=== PATIENT | female | born 1965 | race Caucasian/White ===

== ENCOUNTER 2025-01-09 19:43 | Inpatient (IN) | payer OTHER ==
[~2025-01-09] VITALS: Ht 162.6 cm; Wt 88.0 kg
[2025-01-09 20:51] LABS: BASOPHILS % 0.3 % (0.0-2.0); EOSINOPHILS % 0.0 % (0.0-5.0); HEMATOCRIT. 42.7 % (36.0-48.0); HEMOGLOBIN. 13.9 g/dL (12.0-16.0); LYMPHOCYTES % 8.0 % (20.0-50.0); MEAN PLATELET VOLUME 10.1 fl (7.4-10.4); MONOCYTES % 2.5 % (2.0-8.0); NEUTROPHILS % 89.2 % (40.0-76.0); PLATELET 171 x1000/uL (130-400); RED BLOOD CELL COUNT 4.51 mill/uL (4.2-5.4); RED CELL DISTRIBUTION WIDTH 13.9 % (11.6-14.6)
[2025-01-09 20:56] LABS: CREATININE 2.2 mg/dL (0.6-1.0); UREA NITROGEN BLOOD 18.0 mg/dL (9-23)
[2025-01-10] MEDS ORDERED: FLUO60TA PO (02:50)
[2025-01-10] MEDS ORDERED: AMLO10TA80 PO (02:50)
[2025-01-10] MEDS ORDERED: GABA-1180 PO (02:50)
[2025-01-10] MEDS ORDERED: ONDA-241 PO (02:50)
[2025-01-10] MEDS ORDERED: MORP30TA54 PO (02:50)
[2025-01-10] MEDS ORDERED: QUET300T2 PO (02:50)
[2025-01-10] MEDS ORDERED: CLONIDINE 0.1MG TABLET PO PRN (03:00)
[2025-01-10] MEDS ORDERED: DEXTROSE 50% WATER 50ML SYRINGE IV PRN ×2 (03:00→03:15)
[2025-01-10] MEDS ORDERED: IPRATROPIUM/ALBUTEROL 0.5-3(2.5)MG/3ML NEB HHN PRN (03:00)
[2025-01-10] MEDS ORDERED: ONDANSETRON HCL 4MG/2ML INJ IV PRN (03:00)
[2025-01-10] MEDS ORDERED: DOCUSATE SODIUM 100MG CAPSULE PO PRN (03:00)
[2025-01-10] MEDS ORDERED: MAGNESIUM/ALUMINUM HYDROXIDE/SIMETHICONE 30ML UDC PO PRN (03:00)
[2025-01-10] MEDS ORDERED: GUAIFENESIN 200MG/10ML SUGAR FREE UDC PO PRN (03:00)
[2025-01-10 03:06] VITALS: BP 131/78; PULSE 80; RESP 20; TEMP 36.418
[2025-01-10] MEDS ORDERED: *PATIENT'S OWN MEDICATION STORAGE XX SCH ×2 (03:15→19:15)
[2025-01-10] MEDS ORDERED: FLUT1DIS3 IH (04:01)
[2025-01-10] MEDS ORDERED: OXCA300T31 PO (04:01)
[2025-01-10] MEDS ORDERED: FLUO40CA49 PO (04:01)
[2025-01-10] MEDS ORDERED: FAMO20TA8 PO (04:01)
[2025-01-10] MEDS ORDERED: QUET300T20 PO (04:01)
[2025-01-10] MEDS: SODIUM CHLORIDE 0.9% 1,000 ML IV SCH (04:48)
[2025-01-10] MEDS: NALOXONE HCL 0.4MG/ML 1ML VIAL IV NR (05:15)
[2025-01-10] MEDS: BLOOD SUGAR DIAGNOSTIC STRIP TEST SCH (06:54)
[2025-01-10 07:24] LABS: CLARITY URINE CLOUDY (CLEAR); COLOR URINE DARK YELLOW (YELLOW); GLUCOSE URINE NEGATIVE (NEGATIVE); KETONES URINE TRACE (NEGATIVE); LEUKOCYTE ESTERASE URINE TRACE (NEGATIVE); NITRITE URINE NEGATIVE (NEGATIVE); OCCULT BLOOD URINE TRACE (NEGATIVE); PH URINE 5.0 (4.5-8.0); PROTEIN URINE 1+ (NEGATIVE); SPECIFIC GRAVITY URINE 1.026 (1.005-1.030); UROBILINOGEN URINE 1.0 E.U./dL (0.2-1.0)
[2025-01-10] MEDS ORDERED: BLOOD SUGAR DIAGNOSTIC STRIP TEST SCH (07:40)
[2025-01-10 07:45] LABS: SODIUM URINE RANDOM 15.0 mEq/L
[2025-01-10 07:50] LABS: *AMPHETAMINES SCREEN URINE NEGATIVE (NEGATIVE); *BARBITURATES SCREEN URINE NEGATIVE (NEGATIVE); *BENZODIAZEPINES SCREEN URINE NEGATIVE (NEGATIVE); *COCAINE SCREEN URINE NEGATIVE (NEGATIVE); CANNABINOID URINE SCREEN PRESUMPTIVE POSITIVE (NEGATIVE); ECSTASY MDMA SCREEN URINE NEGATIVE (NEGATIVE); METHADONE URINE SCREEN NEGATIVE (NEGATIVE); OPIATES URINE SCREEN PRESUMPTIVE POSITIVE (NEGATIVE); PHENCYCLIDINE URINE SCREEN NEGATIVE (NEGATIVE)
[2025-01-10 07:56] LABS: CREATININE URINE RANDOM 179.8 mg/dL
[2025-01-10 08:00] VITALS: BP 115/62; PULSE 80; RESP 20; TEMP 36.1; O2SAT 92
[2025-01-10] MEDS: INSULIN LISPRO 100 UNITS/ML SUBCUT SCH (08:10)
[2025-01-10] MEDS: PANTOPRAZOLE SODIUM 40 MG/VIAL IV SCH (08:49)
[2025-01-10] MEDS: ENOXAPARIN 40MG/0.4ML SYR SUBCUT SCH (08:50)
[2025-01-10 09:07] LABS: HYALINE CASTS URINE 20-30 /lpf
[2025-01-10 09:08] LABS: FINE GRANULAR CASTS URINE 0-5 /lpf
[2025-01-10 09:09] LABS: OSMOLALITY URINE 404.0 mOsm/kg (500-850)
[2025-01-10 09:10] LABS: SQUAMOUS EPITHELIAL CELL URINE 2+ /lpf (RARE/1+)
[2025-01-10 09:11] LABS: RBC URINE 0-2 /hpf (0-2)
[2025-01-10 09:13] LABS: BACTERIA URINE 2+
[2025-01-10 09:55] LABS: BG BASE EXCESS -4.2 mmol/L (-2.0-3.0); BG CARBOXYHEMOGLOBIN 1.3 % (0.5-1.5); BG DEOXYHEMOGLOBIN 10.6 % (0.0-5.0); BG FLOW(L/min) 5.00 L/min; BG FRACTION INSPIRED OXYGEN 40; BG HCO3 ACT 19.8 mmol/L (21.0-28.0); BG METHEMOGLOBIN 0.3 % (0.5-1.5); BG OXYGEN SATURATION 89.2 % (94.0-98.0); BG OXYHEMOGLOBIN 87.8 % (94.0-98.0); BG PCO2 33.2 mmHg (32.0-45.0); BG PH 7.394 (7.350-7.450); BG PO2 60.8 mmHg (83.0-108.0); BG SAMPLE SITE RIGHT RADIAL; BG TOTAL HEMOGLOBIN 12.4 g/dL (12.0-16.0); BG VENT MODE NASAL CANNULA
[2025-01-10] MEDS ORDERED: SODIUM CHLORIDE 0.9% 1,000 ML IV NR (11:30)
[2025-01-10 12:00] VITALS: BP 93/66; PULSE 65; RESP 20; TEMP 36.4; O2SAT 91
[2025-01-10 16:00] VITALS: BP 112/64; PULSE 81; RESP 20; TEMP 36.6; O2SAT 93
[2025-01-10 16:32] LABS: CREATININE 2.3 mg/dL (0.6-1.0)
[2025-01-10 16:33] LABS: UREA NITROGEN BLOOD 30.0 mg/dL (9-23)
[2025-01-10] MEDS: FLUOXETINE HCL 20MG CAPSULE PO SCH (17:02)
[2025-01-10] MEDS ORDERED: SODIUM CHLORIDE 0.9% 1,000 ML IV ONE (18:15)
[2025-01-10 20:00] VITALS: BP 118/73; PULSE 84; RESP 20; TEMP 36.7; O2SAT 94
[2025-01-11] VITALS: BP 108/77; PULSE 77; RESP 20; TEMP 36.4; O2SAT 98
[2025-01-11 04:00] VITALS: BP 143/79; PULSE 80; RESP 20; TEMP 36.8; O2SAT 98
[2025-01-11] MEDS: ACETAMINOPHEN 650MG/20.3ML UDC GT PRN (06:04)
[2025-01-11 08:08] VITALS: BP 126/76; PULSE 74; RESP 18; TEMP 36.4; O2SAT 96
[2025-01-11 08:52] LABS: BASOPHILS % 0.2 % (0.0-2.0); EOSINOPHILS % 0.3 % (0.0-5.0); HEMATOCRIT. 37.6 % (36.0-48.0); HEMOGLOBIN. 12.8 g/dL (12.0-16.0); LYMPHOCYTES % 7.5 % (20.0-50.0); MEAN PLATELET VOLUME 10.6 fl (7.4-10.4); MONOCYTES % 2.3 % (2.0-8.0); NEUTROPHILS % 89.7 % (40.0-76.0); PLATELET 198 x1000/uL (130-400); RED BLOOD CELL COUNT 4.07 mill/uL (4.2-5.4); RED CELL DISTRIBUTION WIDTH 13.9 % (11.6-14.6)
[2025-01-11 09:15] LABS: ASPARTATE AMINOTRANSFERASE 57 IU/L (<34); BILIRUBIN DIRECT 0.2 mg/dL (<=3.0); BILIRUBIN TOTAL 0.6 mg/dL (0.1-1.0); CREATININE 0.9 mg/dL (0.6-1.0)
[2025-01-11 09:16] LABS: PROTEIN TOTAL 6.9 g/dL (6.0-8.3)
[2025-01-11 09:21] LABS: UREA NITROGEN BLOOD 12 mg/dL (9-23)
[2025-01-11 09:23] LABS: PHOSPHORUS 1.8 mg/dL (2.5-4.9)
[2025-01-11] MEDS: BUDESONIDE 0.5MG/2ML NEB HHN SCH (09:57)
[2025-01-11] MEDS: IPRATROPIUM/ALBUTEROL 0.5-3(2.5)MG/3ML NEB HHN SCH (09:57)
[2025-01-11 10:02] VITALS: PULSE 87; RESP 29; O2SAT 98
[2025-01-11 12:01] VITALS: BP 118/47; PULSE 78; RESP 20; TEMP 35.7
[2025-01-11] MEDS ORDERED: LORAZEPAM 1MG TABLET ONE (12:27)
[2025-01-11] MEDS: LORAZEPAM 1MG TABLET PO SCH (12:30)
[2025-01-11] MEDS: OXCARBAZEPINE 300MG TABLET PO SCH (14:00)
== END 2025-01-11 14:40 | disposition left against medical advice (07) | DRG 91 ==
LOC: ER 19:43 → 7WST 01-10 00:48 → EDBEDREQDT 01-10 00:50 → EDBEDREQTM 01-10 00:50 → EDBEDREQ 01-10 00:50 → ENRESERV 01-10 01:16
PROVIDERS: ADMIT Hospitalist; ATTEND Hospitalist
DX: G92.8 Other toxic encephalopathy (principal); J96.01 Acute respiratory failure with hypoxia; E87.1 Hypo-osmolality and hyponatremia; N17.9 Acute kidney failure, unspecified; E87.20 Acidosis, unspecified; N18.9 Chronic kidney disease, unspecified; J44.9 Chronic obstructive pulmonary disease, unspecified; F11.929 Opioid use, unspecified with intoxication, unspecified; Z53.29 Procedure and treatment not carried out because of patient's decision for other reasons; G89.29 Other chronic pain; F17.210 Nicotine dependence, cigarettes, uncomplicated; E11.42 Type 2 diabetes mellitus with diabetic polyneuropathy; I12.9 Hypertensive chronic kidney disease with stage 1 through stage 4 chronic kidney disease, or unspecified chronic kidney disease; D72.829 Elevated white blood cell count, unspecified; E11.22 Type 2 diabetes mellitus with diabetic chronic kidney disease; I95.9 Hypotension, unspecified; F41.9 Anxiety disorder, unspecified; F32.A Depression, unspecified; Z79.899 Other long term (current) drug therapy; Z79.51 Long term (current) use of inhaled steroids; Z88.0 Allergy status to penicillin; Z90.710 Acquired absence of both cervix and uterus; Z99.81 Dependence on supplemental oxygen
CPT/HCPCS: 36415; 36600; 71045; 80048; 80076; 80305; 81003; 82375; 82533; 82570; 82805; 82962; 83036; 83605; 83735; 83930; 83935; 84100; 84145; 84300; 84443; 85025; 93005; 94070; 94640; 99291; A4606; J1650; J1815; J2470; J7626